=== PATIENT | male | born 1980 | race Caucasian/White ===

== ENCOUNTER 2016-06-24 06:43 | Emergency (ER) | payer OTHER ==
[~2016-06-24] VITALS: Ht 170.2 cm; Wt 68.2 kg
[~2016-06-24 06:43] MED LIST: LORA-441 PO; NO MEDS
[2016-06-24 06:47] VITALS: Ht 170.2 cm; Wt 68.2 kg
[2016-06-24] MEDS ORDERED: NEOMYC/POLYMYX/BACIT 30 GM OINT TOP ONE (07:30)
[2016-06-24] MEDS ORDERED: IBUPROFEN 600 MG TAB PO ONE (07:30)
[2016-06-24] MEDS ORDERED: IBUP-1542 PO (08:13)
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
== END 2016-06-24 09:33 | disposition home or self-care (01) ==
LOC: E/R 06:43
DX: F15.10 Other stimulant abuse, uncomplicated (principal); S80.211A Abrasion, right knee, initial encounter; S93.401A Sprain of unspecified ligament of right ankle, initial encounter; F17.210 Nicotine dependence, cigarettes, uncomplicated; V89.2XXA Person injured in unspecified motor-vehicle accident, traffic, initial encounter